=== PATIENT | male | born 1960 | race Two or more races ===

== ENCOUNTER 2019-05-22 21:49 | Emergency (ER) | payer OTHER ==
[~2019-05-22] VITALS: Ht 180.3 cm; Wt 97.5 kg
[~2019-05-22 21:49] MED LIST: AZIT500T PO; POLY10DR EACHEYE
--- NOTE | 2019-05-22 22:41 | PHYS DOC ---
Past History Past Medical History: No Pertinent History, GERD Past Surgical History: Other Smoking: Non-smoker Alcohol Use: Rarely Drug Use: None Adult General Chief Complaint Chief Complaint: FOREIGN BODY HPI HPI Patient is a 58-year-old male presents with difficulty swallowing, foreign body sensation his upper throat. This started this evening after eating. He is able to tolerate secretions. No fever. No difficulty breathing. Nothing makes symptoms better or worse. No previous history of this.[] Review of Systems Review of Systems Constitutional: Denies fever or chills [] Eyes: Denies change in visual acuity, redness, or eye pain [] HENT: Denies nasal congestion or sore throat [] Respiratory: Denies cough or shortness of breath [] Cardiovascular: No chest pain or palpitations[] GI: Denies abdominal pain, nausea, vomiting, bloody stools or diarrhea [] : Denies dysuria or hematuria [] Musculoskeletal: Denies back pain or joint pain [] Integument: Denies rash or skin lesions [] Neurologic: Denies headache, focal weakness or sensory changes [] Endocrine: Denies polyuria or polydipsia [] All other systems were reviewed and found to be within normal limits, except as documented in this note. Current Medications Current Medications Current Medications Medications (Trade) Dose Ordered Sig/Madison Start Time Stop Time Status Last Admin Dose Admin Benzocaine (Hurricaine One) 1 spray 1X ONCE 05/22/19 23:00 05/22/19 23:01 Allergies Allergies Allergies Coded Allergies Type Severity Reaction Last Updated Verified Penicillins Allergy Intermediate 02/17/15 No Physical Exam Physical Exam Constitutional: Well developed, well nourished, no acute distress, non-toxic appearance. [] HENT: Normocephalic, atraumatic, bilateral external ears normal, oropharynx moist, no oral exudates, nose normal. [] Eyes: PERRLA, EOMI, conjunctiva normal, no discharge. [] Neck: Normal range of motion, no tenderness, supple, no stridor. [] Cardiovascular:Heart rate regular rhythm, no murmur [] Lungs & Thorax: Bilateral breath sounds clear to auscultation [] Abdomen: Bowel sounds normal, soft, no tenderness, no masses, no pulsatile masses. [] Skin: Warm, dry, no erythema, no rash. [] Back: No tenderness, no CVA tenderness. [] Extremities: No tenderness, no cyanosis, no clubbing, ROM intact, no edema. [] Neurologic: Alert and oriented X 3, normal motor function, normal sensory function, no focal deficits noted. [] Psychologic: Affect normal, judgement normal, mood normal. [] Current Patient Data Vital Signs Vital Signs Date Time Temp Pulse Resp B/P (MAP) Pulse Ox O2 Delivery O2 Flow Rate FiO2 05/22/19 21:57 98.0 85 16 96 Room Air EKG EKG [] Radiology/Procedures Radiology/Procedures PROCEDURE: CT SOFT TISSUE NECK W/CONTRAST CT neck with contrast. HISTORY: Fullness upper neck difficulty swallowing. CT scan of the neck was done using 60 mL Omnipaque 300 contrast. There is a mucous retention cyst in the maxillary antrum on each side. Sinuses are otherwise clear. Visualized brain is unremarkable. There is mild swelling at the level the tonsils. Epiglottis is normal. There is no retropharyngeal soft tissue swelling. Parotid and submandibular glands are unremarkable. Lymph nodes in the neck are within normal limits in size without adenopathy. Thyroid is homogeneous. Upper lobes of the lungs appear clear. There are artifacts off the fillings in the teeth limits evaluation to a mild degree. There is degenerative disc disease in the cervical spine with spurring at C5-6 and C6-7 with spinal stenosis. IMPRESSION: 1. Mild nonspecific prominence of the tonsils. 2. No mass or adenopathy otherwise identified in the neck. 3. Degenerative disc disease and spinal stenosis and lower cervical spine. [] Course & Med Decision Making Course & Med Decision Making Pertinent Labs and Imaging studies reviewed. (See chart for details) ED course: Patient arrived, was placed in bed, and tolerated exam well. He had Hurricaine spray which allowed visualization the posterior oropharynx with no foreign body visualized. And no significant improvement in his symptoms with the numbing medicine. IV access was established. He was transported to and from [place] with any consultations. After return of the imaging and lab findings, these were discussed with the patient voiced understanding. Initial dose of antibiotics w ere administered. He was discharged in improved condition. All questions were answered. Medical decision making: Patient appears to have tonsillitis on imaging. There is no evidence of airway obstruction, abscess, foreign body, nor systemic toxicity.[] Dragon Disclaimer Dragon Disclaimer This electronic medical record was generated, in whole or in part, using a voice recognition dictation system. Departure Departure: Impression: Primary Impression: Tonsillitis Disposition: 01 HOME, SELF-CARE Condition: IMPROVED Referrals: MEGHANN LEY APRN (PCP) Follow-up in 2 days Patient Instructions: Tonsillitis Additional Instructions: Follow-up with your regular doctor in 2 days. Drink plenty of fluids. Take the medication as prescribed. Return to the ER if worsening discomfort, difficulty swallowing or breathing, or any other concerns. Scripts Clindamycin Hcl (CLINDAMYCIN HCL) 300 Mg Capsule 1 CAP PO TID for TONSILLITIS, #21 CAP Prov: ANSHU APPLE DO 05/23/19 Prednisone (PREDNISONE) 50 Mg Tablet 1 TAB PO DAILY for INFLAMMATION, #5 TAB Prov: ANSHU APPLE DO 05/23/19 ANSHU APPLE DO May 22, 2019 22:41
[2019-05-22] MEDS ORDERED: BENZOCAINE ONE 20% MUCOSAL SPRAY. MM (23:00)
[2019-05-22] MEDS ORDERED: CONTRAST GIVEN MC PRN (23:00)
[2019-05-22] MEDS ORDERED: IOHEXOL 300 MG/ML 75 ML VIAL. IV ONE (23:00)
[2019-05-22 23:25] LABS: BASO % 1 % (0-3); EOS # 0.1 x10^3/uL (0.0-0.7); EOS % 1 % (0-3); HEMATOCRIT 44.9 % (39.0-53.0); HEMOGLOBIN 15.1 g/dL (13.0-17.5); LYMPH # 1.4 x10^3/uL (1.0-4.8); LYMPH % 18 % (24-48); MEAN CORPUSCULAR HEMOGLOBIN 32 pg (25-35); MEAN CORPUSCULAR HGB CONC 34 g/dL (31-37); MEAN CORPUSCULAR VOLUME 94 fL (79-100); MONO # 0.6 x10^3/uL (0.0-1.1); MONO % 8 % (0-9); NEUT # 5.6 x10^3uL (1.8-7.7); NEUT % 72 % (31-73); PLATELET COUNT 244 x10^3/uL (140-400); RED BLOOD COUNT 4.78 x10^6/uL (4.30-5.70); RED CELL DISTRIBUTION WIDTH 13.1 % (11.5-14.5); WHITE BLOOD COUNT 7.8 x10^3/uL (4.0-11.0)
[2019-05-22 23:33] LABS: CALCIUM 8.8 mg/dL (8.5-10.1); CREATININE 1.5 mg/dL (0.7-1.3); GFR 47.9; POTASSIUM 3.7 mmol/L (3.5-5.1)
--- NOTE | 2019-05-23 00:35 | RAD ---
CT neck with contrast. HISTORY: Fullness upper neck difficulty swallowing. CT scan of the neck was done using 60 mL Omnipaque 300 contrast. There is a mucous retention cyst in the maxillary antrum on each side. Sinuses are otherwise clear. Visualized brain is unremarkable. There is mild swelling at the level the tonsils. Epiglottis is normal. There is no retropharyngeal soft tissue swelling. Parotid and submandibular glands are unremarkable. Lymph nodes in the neck are within normal limits in size without adenopathy. Thyroid is homogeneous. Upper lobes of the lungs appear clear. There are artifacts off the fillings in the teeth limits evaluation to a mild degree. There is degenerative disc disease in the cervical spine with spurring at C5-6 and C6-7 with spinal stenosis. IMPRESSION: 1. Mild nonspecific prominence of the tonsils. 2. No mass or adenopathy otherwise identified in the neck. 3. Degenerative disc disease and spinal stenosis and lower cervical spine. PQRS Compliance Statement: One or more of the following individualized dose reduction techniques were utilized for this examination: 1. Automated exposure control 2. Adjustment of the mA and/or kV according to patient size 3. Use of iterative reconstruction technique Electronically signed by: Junior Bhatt MD (05/23/2019 12:32 AM) [facility]
[2019-05-23] MEDS ORDERED: PRED50TA PO (00:46)
[2019-05-23] MEDS ORDERED: CLIN300C8 PO (00:46)
[2019-05-23] MEDS ORDERED: predniSONE 10 MG TABLET PO ONE (01:00)
[2019-05-23] MEDS ORDERED: CLINDAMYCIN HCL 150 MG CAPSULE PO ONE (01:00)
[2019-05-23 01:08] VITALS: BP 109/79
== END 2019-05-23 01:10 | disposition home or self-care (01) ==
LOC: ER 21:49
DX: J03.90 Acute tonsillitis, unspecified (principal); K21.9 Gastro-esophageal reflux disease without esophagitis; Z88.0 Allergy status to penicillin
CPT/HCPCS: 36415; 70491; 80048; 85025; 99285; J7512; Q9967

== ENCOUNTER 2021-06-04 11:58 | Emergency (ER) | payer OTHER ==
[~2021-06-04] VITALS: Ht 180.3 cm; Wt 104.0 kg
[~2021-06-04 11:58] MED LIST changes: +CLIN300C9 PO; +PRED50TA PO
[2021-06-04] MEDS: IV NORMAL SALINE 1,000ML 1,000 ML IV ONE (13:00)
--- NOTE | 2021-06-04 13:09 | PHYS DOC ---
Past History Past Medical History: No Pertinent History, GERD (JACQUE MOREAU APRN) Past Surgical History: Other (JACQUE MOREAU APRN) Smoking: Non-smoker Alcohol Use: Rarely Drug Use: None (JACQUE MOREAU APRN) General Adult EDM: Chief Complaint: FATIGUE HPI: HPI: Patient is a 60-year-old male who presents to the ER with fatigue, intermittent fevers, nonproductive cough, decreased appetite, right flank pain that has been going on for a few days. Patient denies any shortness of breath, chest pain, nausea, vomiting, sick exposures, dysuria, hematuria. Patient is vaccinated for COVID-19. He denies any medical history. His vital signs are stable at this time. (JACQUE MOREAU APRN) Review of Systems: Review of Systems: 14 body systems of the review of systems have been reviewed. See HPI for pertinent positive and negative responses, otherwise all other systems are negative, nonpertinent or noncontributory (JACQUE MOREAU APRN) Current Medications: Current Meds: Current Medications Medications (Trade) Dose Ordered Sig/Madison Start Time Stop Time Status Last Admin Dose Admin Sodium Chloride 1,000 ml @ 1,000 mls/hr 1X ONCE 06/04/21 13:00 06/04/21 13:59 (JACQUE MOREAU APRN) Allergies: Allergies: Allergies Coded Allergies Type Severity Reaction Last Updated Verified Penicillins Allergy Intermediate 02/17/15 No (JACQUE MOREAU APRN) Physical Exam: PE: Constitutional: Well developed, well nourished, no acute distress, non-toxic appearance. [] HENT: Normocephalic, atraumatic, bilateral external ears normal, oropharynx moist, no oral exudates, nose normal. [] Eyes: PERRL, EOMI, conjunctiva normal, no discharge. [] Neck: Normal range of motion, no stridor Cardiovascular:Heart rate regular rhythm, no murmur [] Lungs & Thorax: Bilateral breath sounds clear to auscultation [] Abdomen: Bowel sounds normal, soft, no tenderness, no masses, no pulsatile masses. [] Skin: Warm, dry, no erythema, no rash. [] Back: No tenderness, right CVA tenderness Extremities: No tenderness, no cyanosis, no clubbing, ROM intact, no edema. [] Neurologic: Alert and oriented X 3, normal motor function, normal sensory function, no focal deficits noted. [] Psychologic: Affect normal, judgement normal, mood normal. [] (JACQUE MOREAU APRN) Current Patient Data: Labs: Laboratory Tests Test 06/04/21 13:00 06/04/21 14:34 White Blood Count 9.2 x10^3/uL Red Blood Count 5.06 x10^6/uL Hemoglobin 16.0 g/dL Hematocrit 47.6 % Mean Corpuscular Volume 94 fL Mean Corpuscular Hemoglobin 32 pg Mean Corpuscular Hemoglobin Concent 34 g/dL Red Cell Distribution Width 13.1 % Platelet Count 245 x10^3/uL Neutrophils (%) (Auto) 70 % Lymphocytes (%) (Auto) 14 % Monocytes (%) (Auto) 15 % Eosinophils (%) (Auto) 1 % Basophils (%) (Auto) 1 % Neutrophils # (Auto) 6.4 x10^3uL Lymphocytes # (Auto) 1.2 x10^3/uL Monocytes # (Auto) 1.4 x10^3/uL Eosinophils # (Auto) 0.1 x10^3/uL Basophils # (Auto) 0.1 x10^3/uL Sodium Level 138 mmol/L Potassium Level 3.7 mmol/L Chloride Level 101 mmol/L Carbon Dioxide Level 30 mmol/L Anion Gap 7 Blood Urea Nitrogen 26 mg/dL Creatinine 1.3 mg/dL Estimated GFR (Cockcroft-Gault) 56.1 BUN/Creatinine Ratio 20 Glucose Level 105 mg/dL Calcium Level 8.9 mg/dL Total Bilirubin 0.7 mg/dL Aspartate Amino Transf (AST/SGOT) 32 U/L Alanine Aminotransferase (ALT/SGPT) 44 U/L Alkaline Phosphatase 82 U/L Total Protein 8.5 g/dL Albumin 3.7 g/dL Albumin/Globulin Ratio 0.8 Lipase 82 U/L Urine Collection Type Unknown Urine Color Yellow Urine Clarity Hazy Urine pH 5.5 Urine Specific [place] >=1.030 Urine Protein 100 mg/dl Urine Glucose (UA) Neg mg/dL Urine Ketones (Stick) Neg mg/dL Urine Blood Small Urine Nitrite Neg Urine Bilirubin Neg Urine Urobilinogen Dipstick 0.2 mg/dL Urine Leukocyte Esterase Neg Urine RBC 1-2 /HPF Urine WBC 0 /HPF Urine Bacteria 0 /HPF Urine Mucus Marked /LPF Current Medications Medications (Trade) Dose Ordered Sig/Madison Route PRN Reason Start Time Stop Time Status Last Admin Dose Admin Sodium Chloride 1,000 ml @ 1,000 mls/hr 1X ONCE IV 06/04/21 13:00 06/04/21 13:59 DC 06/04/21 13:00 Vital Signs: Vital Signs Date Time Temp Pulse Resp B/P (MAP) Pulse Ox O2 Delivery O2 Flow Rate FiO2 06/04/21 12:42 98.6 80 16 139/91 (107) 98 Room Air (JACQUE MOREAU HALF SOLE FITTER) EKG: EKG: [] (JACQUE MOREAU APRN) Radiology/Procedures: Radiology/Procedures: PROCEDURE: CHEST AP ONLY XR CHEST 1V INDICATION: cough, fatigue COMPARISON STUDY: None. FINDINGS: Lungs: Normal lung volume. No pulmonary mass or consolidation. The tracheobronchial tree and hilar structures are normal. Pleura: No pleural effusion or pneumothorax. Heart and Mediastinum: Cardiomegaly. Mild tortuosity of the thoracic aorta. IMPRESSION: No acute cardiopulmonary process. Electronically signed by: Vidal Gaitan MD (06/04/2021 2:04 PM) [facility] DICTATED AND SIGNED BY: VIDAL GAITAN MD DATE: 06/04/21 1403 CC: MOIZ MORILLO; JACQUE MOREAU APRN ~MTH0 0 []PROCEDURE: CT ABDOMEN PELVIS WO CONTRAST EXAM: Abdomen and pelvis CT without intravenous contrast. HISTORY: Flank pain. Hematuria. TECHNIQUE: Computed tomographic images of the abdomen and pelvis were obtained without contrast. Multiplanar reformatting was performed. *One or more of the following individualized dose reduction techniques were utilized for this examination: 1. Automated exposure control. 2. Adjustment of the mA and/or kV according to patient size. 3. Use of iterative reconstruction technique. COMPARISON: None. FINDINGS: Evaluation of the lower thorax demonstrates no infiltrate or pleural effusion. There is a calcified granuloma within the right middle lobe. No hepatic lesion is seen. The gallbladder, pancreas, spleen and adrenal glands are unremarkable. There is no nephroureterolithiasis or hydronephrosis. No solid or cystic renal lesion is seen on this noncontrast exam. The bladder is nearly empty. The prostate is mildly enlarged. There is no appendicitis. There is no bowel obstruction. There is colonic diverticulosis. There is no evidence of diverticulitis. The aorta is normal in caliber. There is no lymphadenopathy. There is a small fat-containing right inguinal hernia. There is no suspicious or acute osseous finding. IMPRESSION: 1. No evidence of nephrolithiasis or hydronephrosis. 2. Colonic diverticulosis. 3. Mild prostatomegaly. Electronically signed by: Renee Breaux MD (06/04/2021 3:33 PM) [id number] DICTATED AND SIGNED BY: RENEE BREAUX MD DATE: 06/04/21 1530 CC: MOIZ MORILLO; JACQUE MOREAU APRN ~MTH0 0 (JACQUE MOREAU APRN) Heart Score: C/O Chest Pain: No Risk Factors: Risk Factors: DM, Current or recent (<one month) smoker, HTN, HLP, family history of CAD, obesity. Risk Scores: Score 0 - 3: 2.5% MACE over next 6 weeks - Discharge Home Score 4 - 6: 20.3% MACE over next 6 weeks - Admit for Clinical Observation Score 7 - 10: 72.7% MACE over next 6 weeks - Early Invasive Strategies (JACQUE MOREAU APRN) Course & Med Decision Making: Course & Med Decision Making Pertinent Labs and Imaging studies reviewed. (See chart for details) []Patient is a 60-year-old male who presents to the ER with fatigue, intermittent fevers, nonproductive cough, decreased appetite, right flank pain that has been going on for a few days. Patient denies any shortness of breath, chest pain, nausea, vomiting, sick exposures, dysuria, hematuria. Patient is vaccinated for COVID-19. He denies any medical history. His vital signs are stable at this time. Work-up in the ER consisted of blood work, urinalysis. Patient also Covid tested in the ER he will be notified of those results when they become available. Patient treated with IV fluids. Blood work was unremarkable. There was mild hematuria noted in patient's urine therefore a CT scan of the abdomen was performed to rule out kidney stone. CT was negative for any acute findings. Patient advised to increase fluids and take Tylenol/ibuprofen for pain. (JACQUE MOREAU APRN) Course & Med Decision Making I was the Attending physician on the above date of service of this patient. This patient was evaluated, examined, treated, and dispositioned from the emergency department by the mid-level practitioner. Although I was working at the time , no assistance was requested. Electronically signed, Xavier Perez DO (XAVIER PEREZ DO) Juan Disclaimer: Juan Disclaimer: This electronic medical record was generated, in whole or in part, using a voice recognition dictation system. (JACQUE MOREAU APRN) Departure Departure: Impression: Primary Impression: Person under investigation for COVID-19 Disposition: HOME / SELF CARE / HOMELESS Condition: GOOD Referrals: MOIZ MORILLO (PCP) Patient Instructions: Fatigue Additional Instructions: You were seen in the ER today for fatigue, cough, fevers that are intermittent and right flank pain. Your blood work was unremarkable. Your chest x-ray and CT scan was negative for any acute findings. Increase your fluids and take Tylenol/ibuprofen for pain or fevers. You can take [id number] Delsym for your cough. You were tested in the ER today for COVID-19. You will be notified of your results when they become available in approximately 2 days, please self isolate until you receive these results. Follow-up with your primary care provider tomorrow regarding your ER visit. If you develop chest pain, shortness of breath, high fevers refractory to treatment, intractable nausea or vomiting or any new or worsening concerns please return to the ER. EMERGENCY DEPARTMENT GENERAL DISCHARGE INSTRUCTIONS Thank you for coming to [facility] (ED) today and trusting us with you care. We trust that you had a positivie experience in our Emergency Department. If you wish to speak to the department management, you may call the director at [phone]. YOUR FOLLOW UP INSTRUCTIONS ARE FOLLOWS: 1. Do you have a private Doctor? If you do not have a private doctor, please ask for a resource list of physicians or clinics that may be able to assist you with follow up care. 2. The Emergency Physician has interpreted your x-rays. The X-Ray specialist will also review them. If there is a change in the findings, you will be notified in 48 hours when at all possible. 3. A lab test or culture has been done, your results will be reviewed and you will be notified if you need a change in treatment. ADDITIONAL INSTRUCTIONS AND INFORMATION: 1. Your care today has been supervised by a physician who is specially trained in emergency care. Many problems require more than one evaluation for a complete diagnosis and treatment. We recommend that you schedule your follow up appointment as recommended to ensure complete treatment of you illness or injury. If you are unable to obtain follow up care and continue to have a problem, or if your condition worsens, we recommend that you return to the ED. 2. We are not able to safely determine your condition over the phone nor are we able to give sound medical advice over the phone. For these safety reasons, if you call for medical advice we will ask you to come to the ED for further evaluation. 3. If you have any questions regarding these discharge instructions please call the ED at [phone]. SAFETY INFORMATION: In the interest of safety, wellness, and injury prevention; we encourage you to wear your sealbelt, if you smoke; quite smoking, and we encourage family to use a protective helmet for bicycling and other sporting events that present an increased risk for head injury. IF YOUR SYMPTOMS WORSEN OR NEW SYMPTOMS DEVELOP, OR YOU HAVE CONCERNS ABOUT YOUR CONDITION; OR IF YOUR CONDITION WORSENS WHILE YOU ARE WAITING FOR YOUR FOLLOW UP APPOINTMENT; EITHER CONTACT YOUR PRIMARY CARE DOCTOR, THE PHYSICIAN WHOSE NAME AND NUMBER YOU WERE GIVEN, OR RETURN TO THE ED IMMEDIATELY. JACQUE MOREAU APRN Jun 04, 2021 13:09 XAVIER PEREZ DO Jun 07, 2021 06:32
[2021-06-04 13:19] LABS: BASO # 0.1 x10^3/uL (0.0-0.2); BASO % 1 % (0-3); EOS # 0.1 x10^3/uL (0.0-0.7); EOS % 1 % (0-3); HEMATOCRIT 47.6 % (39.0-53.0); LYMPH # 1.2 x10^3/uL (1.0-4.8); LYMPH % 14 % (24-48); MEAN CORPUSCULAR HEMOGLOBIN 32 pg (25-35); MEAN CORPUSCULAR HGB CONC 34 g/dL (31-37); MEAN CORPUSCULAR VOLUME 94 fL (79-100); MONO # 1.4 x10^3/uL (0.0-1.1); MONO % 15 % (0-9); NEUT # 6.4 x10^3uL (1.8-7.7); NEUT % 70 % (31-73); PLATELET COUNT 245 x10^3/uL (140-400); RED BLOOD COUNT 5.06 x10^6/uL (4.30-5.70); RED CELL DISTRIBUTION WIDTH 13.1 % (11.5-14.5); WHITE BLOOD COUNT 9.2 x10^3/uL (4.0-11.0)
[2021-06-04 13:25] LABS: CALCIUM 8.9 mg/dL (8.5-10.1); CREATININE 1.3 mg/dL (0.7-1.3); GFR 56.1; POTASSIUM 3.7 mmol/L (3.5-5.1)
[2021-06-04 13:30] LABS: ALBUMIN 3.7 g/dL (3.4-5.0); ALBUMIN/GLOBULIN RATIO 0.8 (1.0-1.7); TOTAL BILIRUBIN 0.7 mg/dL (0.2-1.0); TOTAL PROTEIN 8.5 g/dL (6.4-8.2)
--- NOTE | 2021-06-04 14:06 | RAD ---
XR CHEST 1V INDICATION: cough, fatigue COMPARISON STUDY: None. FINDINGS: Lungs: Normal lung volume. No pulmonary mass or consolidation. The tracheobronchial tree and hilar st ructures are normal. Pleura: No pleural effusion or pneumothorax. Heart and Mediastinum: Cardiomegaly. Mild tortuosity of the thoracic aorta. IMPRESSION: No acute cardiopulmonary process. Electronically signed by: Joo Gaitan MD (06/04/2021 2:04 PM) [facility]DRENJarvis
[2021-06-04 15:04] LABS: BACTERIA,URINE 0 /HPF (0-FEW); BILIRUBIN,URINE NEG (NEG); CLARITY,URINE HAZY; COLOR,URINE YELLOW; GLUCOSE,URINE NEG (NEG); NITRITE,URINE NEG (NEG); UROBILINOGEN,URINE 0.2 mg/dL (0.2 mg/dL); WBC,URINE 0 /HPF (0-4)
--- NOTE | 2021-06-04 15:35 | RAD ---
EXAM: Abdomen and pelvis CT without intravenous contrast. HISTORY: Flank pain. Hematuria. TECHNIQUE: Computed tomographic images of the abdomen and pelvis were obtained without contrast. Mult iplanar reformatting was performed. *One or more of the following individualized dose reduction techniques were utilized for this examina tion: 1. Automated exposure control. 2. Adjustment of the mA and/or kV according to patient size. 3. Use of iterative reconstruction technique. COMPARISON: None. FINDINGS: Evaluation of the lower thorax demonstrates no infiltrate or pleural effusion. There is a c alcified granuloma within the right middle lobe. No hepatic lesion is seen. The gallbladder, pancreas , spleen and adrenal glands are unremarkable. There is no nephroureterolithiasis or hydronephrosis. No solid or cystic renal lesion is seen on this noncontrast exam. The bladder is nearly empty. The prostate is mildly enlarged. There is no appendicitis. There is no bowel obstruction. There is colonic diverticulosis. There is no evidence of diverticulitis. The aorta is normal in caliber. There is no lymphadenopathy. There is a small fat-containing right in guinal hernia. There is no suspicious or acute osseous finding. IMPRESSION: 1. No evidence of nephrolithiasis or hydronephrosis. 2. Colonic diverticulosis. 3. Mild prostatomegaly. Electronically signed by: Renee Marie MD (06/04/2021 3:33 PM) [id number]
[2021-06-04 15:37] VITALS: BP 135/85
--- NOTE | 2021-06-06 09:28 | NUR ---
IP: Informed pt of negative covid test. Pt verbalized understanding.
== END 2021-06-04 15:57 | disposition home or self-care (01) ==
LOC: ER 11:58
DX: R53.83 Other fatigue (principal); R50.9 Fever, unspecified; R05 Cough; R10.9 Unspecified abdominal pain; R63.0 Anorexia; K21.9 Gastro-esophageal reflux disease without esophagitis; Z20.822 Contact with and (suspected) exposure to COVID-19; Z88.0 Allergy status to penicillin
CPT/HCPCS: 36415; 71045; 74176; 80053; 81001; 83690; 85025; 96360; 99285; C9803; J7030; U0003